=== PATIENT | female | born 1945 | race Caucasian/White ===

== ENCOUNTER → 2019-02-19 08:42 | Outpatient (CLI) | payer BC, MEDICARE, SELFPAY ==
--- NOTE | 2019-02-19 08:43 | CT_ITS ---
PROCEDURE: CT ABDOMEN PELVIS WO CON CLINICAL INDICATION: RT FLANK PAIN COMPARISON: No exams were available for comparison TECHNIQUE: Axial images obtained with sagittal and coronal reformats. All CT scans at the facility use one or more dose reduction, viz: automated exposure control, ma/kV adjustment per patient size (including targeted exams where dose is matched to indication, i.e. head), or iterative reconstruction technique. FINDINGS: LOWER THORAX: There is a partially calcified nodule in the right lung base posteriorly measuring 12 mm. Coronary artery calcifications are present. Abdomen and pelvis: The liver, gallbladder, spleen, and pancreas have an unremarkable appearance. There is a small hiatal hernia. The adrenal glands are slightly prominent but maintain and adrenal form shape. No renal or ureteral calculi. Very minimal ectasia of the right renal collecting system and ureter noted which could be due to a recently passed stone or patient's hydration status. No pelvic mass abnormal fluid collection or focal inflammatory change of the pelvis. No evidence of appendicitis or diverticulitis. There is diverticulosis of the descending and sigmoid colon. There is a mild amount of retained colonic feces. No acute bony findings IMPRESSION: 1. No acute abdominal or pelvic findings. 2. No renal or ureteral calculi. There is minimal ectasia of the right renal collecting system which could be due to recently passed stone. 3. Colonic diverticulosis. No evidence of diverticulitis Dictated by: Anastacio Lora MD 02/19/2019 15:42 Electronically signed by Anastacio Lora MD in [place] 02/19/2019 15:42
== END ==
PROVIDERS: Visit Provider Urology
DX: R10.9 Unspecified abdominal pain (principal)
CPT/HCPCS: 74176

== ENCOUNTER 2019-02-28 16:27 | Inpatient (IN) ==
--- NOTE | 2019-02-28 16:33 | Emergency Department Note ---
ED Disposition Clinical Impression: ST elevation (STEMI) myocardial infarction Qualifiers: Involved coronary artery: unspecified coronary artery Qualified Code(s): I21.3 - ST elevation (STEMI) myocardial infarction of unspecified site Disposition: Admitted As Inpatient Condition on Discharge: Serious - Critical Care Critical Care Time: Yes Attestation: On , the high probability of a clinically significant, sudden or life threatening deterioration of the following system(s) required my full and direct attention, intervention and personal management. The time I documented below is in addition to time spent performing reported procedures but includes the following listed in this critical care notation. Total Critical Care Time: 15 Vital system(s) involved:: Circulatory Failure My critical care processes included: Assessment & monitoring of V/S, Initial and Re-exams, Data Review/Interpretation, Coordinating Care, Medication Orders and management, Documentation Medical Decision Making - Donell Inquiry Pt receiving controlled substance: No Vital Signs: 02/28/19 16:28 02/28/19 16:49 Temperature 98.1 F 98.1 F Temperature Source Oral Oral Pulse Rate 85 Pulse Rate [Radial] 86 Respiratory Rate 18 18 Blood Pressure 137/57 L Blood Pressure [Right Arm] 175/114 H Blood Pressure Mean [Right Arm] 134 Blood Pressure Source [Right Arm] Automatic Cuff Blood Pressure Position [Right Arm] Sitting 02 Sat by Pulse Oximetry 97 Oxygen Delivery Method Room Air Room Air - Lab Data Lab Results 02/28/19 16:29: WBC 9.4, RBC 5.24, Hgb 15.0, Hct 43.5, MCV 83.1, MCH 28.7, MCHC 34.6, RDW 13.6, Plt Count 237, MPV 8.3, Neut % (Auto) 74.9, Lymph % (Auto) 19.0, [place] % (Auto) 4.0, Eos % (Auto) 1.4, Baso % (Auto) 0.6, Neut # (Auto) 7.1, Lymph # (Auto) 1.8, [place] # (Auto) 0.4, Eos # (Auto) 0.1, Baso # (Auto) 0.1 02/28/19 16:29: Sodium 136, Potassium 4.0, Chloride 100, Carbon Dioxide 25, Anion Gap 15.0, BUN 20 H, Creatinine 0.85, Estimated Creat Clear 58, Estimated GFR 66, Est GFR ( Amer) 79, Glucose 136 H, Calcium 9.4, Troponin I 0.60 H 02/28/19 17:26: Activated Clotting Time 221 H* Result diagrams: 02/28/19 16:29 02/28/19 16:29 Orders (Tests/Meds): ED MEDICATIONS Generic Name Dose Route Start Last Admin Trade Name Freq PRN Reason Stop Dose Admin Acetaminophen 325 mg 02/28/19 18:50 Acetaminophen 325mg Tab PO 03/30/19 17:55 Q4HP PRN Mild Pain Acetaminophen 650 mg 02/28/19 18:50 Acetaminophen 325mg Tab PO 03/30/19 17:55 Q4HP PRN Mild to Moderate Pain Aspirin 81 mg 03/01/19 09:00 Aspirin 81mg Enteric Coated Tablet PO 03/31/19 08:59 DAILY [facility] Diphenhydramine HCl 50 mg 02/28/19 16:45 02/28/19 17:09 Benadryl 50mg/1ml Vial IV 02/28/19 16:46 50 mg ONCE ONE Administration Heparin Sodium/Sodium Chloride 3,000 unit 02/28/19 16:45 02/28/19 17:10 Heparin 1000 Units/500ml Ns ([facility]) IV 02/28/19 16:46 3,000 unit ONCE ONE Administration Insulin Human Lispro 0 unit 02/28/19 21:00 Humalog 100 Units/Ml 3ml Vial (Ssi) SQ 03/30/19 20:59 [facility] Protocol Insulin Human Lispro 0 unit 02/28/19 21:00 Humalog 100 Units/Ml 3ml Vial (Ssi) SQ 03/30/19 20:59 [facility] Protocol Ioversol 75 ml 02/28/19 18:10 02/28/19 18:13 Rad-Optiray 350 150ml Vial IV 02/28/19 18:11 75 ml ONCE ONE Administration Lidocaine HCl 20 ml 02/28/19 16:45 02/28/19 17:10 Lidocaine 1% 10ml Mdv IJ 02/28/19 16:46 10 ml ONCE ONE Administration Miscellaneous 1 each 02/28/19 18:50 Consider Dual Antiplatelet Therapy For Stent * 03/30/19 17:55 NEEDED PRN Reminder for s/p stent Miscellaneous 0 each 02/28/19 18:50 Pharmacy Consult Request NOTAPPLIC 02/28/19 18:51 ONCE ONE Ondansetron HCl 4 mg 02/28/19 18:50 02/28/19 19:22 Zofran 4mg/2ml Vial IV 03/30/19 17:55 4 mg Q6HP PRN Administration Nausea Ticagrelor 90 mg 02/28/19 21:00 Brilinta 90mg Tablet PO 03/30/19 20:59 BID ALICIA Discontinued Medications Generic Name Dose Route Start Last Admin Trade Name Freq PRN Reason Stop Dose Admin Acetaminophen 325 mg 02/28/19 17:56 Acetaminophen 325mg Tab PO 03/30/19 17:55 Q4HP PRN Mild Pain Acetaminophen 650 mg 02/28/19 17:56 Acetaminophen 325mg Tab PO 03/30/19 17:55 Q4HP PRN Mild to Moderate Pain Aspirin 324 mg 02/28/19 16:29 02/28/19 16:33 Aspirin 81mg Chewable Tablet PO 02/28/19 16:30 324 mg ONCE ONE Administration Aspirin 81 mg 03/01/19 09:00 Aspirin 81mg Enteric Coated Tablet PO 03/31/19 08:59 DAILY [facility] Fentanyl Citrate 25 mcg 02/28/19 16:45 02/28/19 17:24 Fentanyl 100mcg/2ml Vial IV 03/01/19 16:46 50 mcg Q3MINP PRN Administration Moderate to Severe Pain Fentanyl Citrate 50 mcg 02/28/19 16:45 Fentanyl 100mcg/2ml Vial IV 03/01/19 16:46 Q3MINP PRN Moderate to Severe Pain Fentanyl Citrate 25 mcg 02/28/19 16:45 Fentanyl 250mcg/5ml Vial IV 03/01/19 16:45 Q3MINP PRN Moderate to Severe Pain Fentanyl Citrate 50 mcg 02/28/19 16:45 Fentanyl 250mcg/5ml Vial IV 03/01/19 16:45 Q3MINP PRN Moderate to Severe Pain Flumazenil 0.2 mg 02/28/19 16:45 Romazicon 0.1mg/Ml 5ml Vial IV 02/28/19 23:00 NEEDED PRN Sedation Heparin Sodium (Porcine) 6,000 unit 02/28/19 16:33 02/28/19 16:39 Heparin Sodium 5,000 Units/Ml Vial IV 02/28/19 16:34 6,000 unit ONCE ONE Administration Heparin Sodium (Porcine) 10,000 unit 02/28/19 16:45 02/28/19 17:28 Heparin 1,000 Units/Ml 10ml Vial ([facility] Assistant) IV 02/28/19 20:45 2,000 unit NEEDED PRN Administration Emergency Box [facility] Sodium Chloride 1,000 mls @ 25 mls/hr 02/28/19 16:45 02/28/19 17:10 Sod Chlor 0.9% 1000ml Bag IV 03/01/19 16:45 25 mls/hr .Q25H ALICIA Administration Lidocaine HCl 20 ml 02/28/19 16:45 Lidocaine 1% 5ml Pf Vial IJ 02/28/19 16:46 ONCE ONE Midazolam HCl 1 mg 02/28/19 16:45 Midazolam 2mg/2ml Vial IV 03/01/19 16:45 Q3MINP PRN Sedation Midazolam HCl 1 mg 02/28/19 16:45 02/28/19 17:23 Midazolam 1mg/Ml 5ml Vial IV 03/01/19 16:45 3 mg Q3MINP PRN Administration Sedation Miscellaneous 0 each 02/28/19 17:56 Pharmacy Consult Request NOTAPPLIC 02/28/19 17:57 ONCE ONE Miscellaneous 1 each 02/28/19 17:56 Consider Dual Antiplatelet Therapy For Stent * 03/30/19 17:55 NEEDED PRN Reminder for s/p stent Naloxone HCl 0.4 mg 02/28/19 16:45 Narcan 0.4mg/Ml Vial IV 03/01/19 16:45 Q5MINP PRN Decreased Respirations Nitroglycerin 0.4 mg 02/28/19 16:40 02/28/19 16:38 Nitrostat 0.4mg Sl Tablet SL 03/30/19 16:39 0.4 mg Q5MINP PRN Administration Chest Pain Nitroglycerin 800 mcg 02/28/19 16:45 Nitroglycerin 800mcg/8ml Syr ([facility]) IV 03/01/19 16:45 NEEDED PRN Emergency Box [facility] Ondansetron HCl 4 mg 02/28/19 17:56 Zofran 4mg/2ml Vial IV 03/30/19 17:55 Q6HP PRN Nausea Ticagrelor 180 mg 02/28/19 16:39 02/28/19 16:41 Brilinta 90mg Tablet PO 02/28/19 16:40 180 mg ONCE ONE Administration Ticagrelor 90 mg 02/28/19 21:00 Brilinta 90mg Tablet PO 03/30/19 20:59 BID ALICIA Verapamil HCl 2.5 mg 02/28/19 16:45 Verapamil 2.5mg/Ml 2ml Vial IV 02/28/19 16:46 ONCE ONE ORDERS Category Date Time Status ECG Request by /Amna Stat Y 02/28/19 16:29 Stop Req - ECG Data Tracing #1 EKG interpreted by Juanjo Reyes MD: Rhythm: sinus Rate: 75 [place]: normal Ectopy: none Conduction: normal ST Segment Changes: Inferior ST elevation, STEMI. Lateral depression, reciprocal change. Q Waves: none - Physician Consults Physician Consulted: Austin Time: 16:27 Reason -: Cardiology Eval/Care Comment/Response: Requests heparin 6000 units IV, Brilinta 180 mg p.o. He is on his way in. [facility] team called in. Additional Consult: Vineet Time: 16:45 Reason -: Admission Comment/Response: Agrees to admit the patient to the hospital. We discussed the patient's clinical information, including history, exam, laboratory and radiology results and ED course. Per hospital procedure, I will write temporary bridge inpatient orders on the patient. Specific orders requested by the admitting physician: Per cardiology - MEERA Score for Stemi Age of Patient: 70-79 years old Heart Rate: 70-89 bpm Systolic Blood Pressure: 140-159 mmHg Serum Creatinine: 0.80-1.19 mg/dl CHF [place] Class: I-No CHF Other Risk Factors: ST Segment Deviation Stemi Risk Score: 143 General Adult HPI - General Chief complaint: Chest Pain Stated complaint: Chest pressure Time Seen by Provider: 02/28/19 16:27 - History of Present Illness HPI narrative: Patient states began having intermittent chest pain yesterday. Initially was lasting just a few minutes, but she says today it has been present pretty much all day. Describes a pressure in the center of her chest without shortness of breath, nausea, diaphoresis, or radiation. She does not have any known heart disease but does have diabetes and hyperlipidemia. She does not have hypertension. She is a non-smoker. - Related Data Home Medications Medication Instructions Recorded Confirmed atorvastatin 40 mg tablet 40 mg PO DAILY tab 02/17/19 02/19/19 sitagliptin 50 mg-metformin ER 1 tab PO DAILY 02/17/19 02/19/19 1,000 mg tablet,extended release 24h mp Allergies Allergy/AdvReac Type Severity Reaction Status Date / Time No Known Allergies Allergy Verified 02/19/19 15:36 [facility] History - Hepatitis A Screen Attestation statement:: This patient has been screened for Hepatitis A risk factors. I have reviewed the patient's past medical history: Yes Medical History: Reports:: Diabetes Mellitus Type 1 Comment: 3 C-sections, rotator cuff surgery 1997, cataract 06/29 - Social History Smoking Status: Never smoker Alcohol Intake: never Substance Use Type: denies use Occupational Status: employed ROS Obtained: Yes All systems reviewed & no additional complaints - Constitutional Constitutional: Denies fever(s) - Cardiovascular Cardiovascular: Reports chest pain, Denies diaphoresis - Respiratory Respiratory: No cough, No dyspnea - Gastrointestinal Gastrointestingal: Denies: abdominal pain, vomiting Physical Exam - General General appearance: alert, in no apparent distress - Head Head exam: atraumatic, normocephalic - Eye Eye exam: Present: normal appearance, EOMI - ENT ENT exam: Present: mucous membranes moist - Neck Neck exam: Present: normal inspection, trachea midline - Chest Chest inspection: Present: normal inspection, symmetric chest wall rise - Respiratory Respiratory exam: Present: normal lung sounds bilaterally. Absent: respiratory distress - Cardiovascular Cardiovascular exam: Present: regular rate, normal rhythm, normal heart sounds - Abdominal Exam Abdominal exam: Present: soft, normal bowel sounds. Absent: distention, tenderness - Extremities Exam Extremities exam: Present: normal inspection, full ROM. Absent: tenderness - Neurological Exam Neurological exam: Present: alert, oriented X3 - Psychiatric Psychiatric exam: Present: normal affect, normal mood - Skin Skin exam: Present: warm, dry. Absent: cyanosis, diaphoresis
[2019-02-28 16:39] LABS: Basophils # 0.1 K/mm3 (0-0.2); Basophils % 0.6 % (0.1-2.0); Eosinophils # 0.1 K/mm3 (0.0-0.4); Eosinophils % 1.4 % (0.1-12.0); Hematocrit 43.5 % (37.0-47.0); Lymphocytes # 1.8 K/mm3 (0.7-4.5); Mean Corpuscular HGB Conc 34.6 g/dL (31.8-35.4); Mean Corpuscular Volume 83.1 fl (81-99); Mean Platelet Volume 8.3 fl (7.4-10.4); Monocytes # 0.4 K/mm3 (0.1-1.0); Neutrophils # 7.1 K/mm3 (1.8-7.8); Neutrophils % 74.9 % (37.0-80.0); Platelet Count 237 K/mm3 (142-424); Red Blood Count 5.24 M/mm3 (4.20-5.40); Red Cell Distribution Width 13.6 % (11.5-17.5); White Blood Count 9.4 K/mm3 (4.8-10.8)
[2019-02-28 17:17] LABS: Calcium 9.4 mg/dL (8.5-10.1)
--- NOTE | 2019-02-28 19:15 | History & Physical Report ---
*Admission Date: 02/28/19 *Chief complaint: Chest pain *History of present illness: Ms. Moser is a 74-year-old white female with a history of type 2 diabetes mellitus and hyperlipidemia who presented to the emergency room today with 2-day history of intermittent chest pressure and tightness that was more persistent today and her family encouraged her to come to the emergency room. She has no history of heart disease. She does not smoke. No significant family history of heart disease. She is active and walks regularly. Her PCP is Dr. Perez in [place]. Work-up in the emergency room showed an elevated troponin with evidence of inferior AL on EKG. She was taken directly to the [facility] by Dr. Avila with findings of a 99% RCA lesion requiring a single stent. She had an additional 70% lesion. At the time of my exam she is resting comfortably in bed. She has no complaints of chest pain, pressure, or tightness. [facility] History Medical History: Reports:: Diabetes Mellitus Type 2, Hyperlipidemia Denies:: Atherosclerotic Heart Disease, Chronic Obstructive Pulmonary Disease (COPD), Diabetes Mellitus Type 1, Palpitations *Have you ever received a pneumonia vaccine?: No *Have you received a flu vaccine this season?: Yes Laterality Cases: Bilateral: Cataract - *Social History Educational Level: Completed High School Smoking Status: Never smoker Alcohol Intake: never Substance Use Type: denies use *Occupational Status:: employed Housing: house *Travel in the last 8 weeks: None Family Hx:: No significant family history Review of Systems - Constitutional Denies fatigue, Denies fever(s), Denies headache(s), Denies weight loss - Eyes Denies blurry vision, Denies double vision - ENT Denies dizziness, Denies hearing loss - *Cardiovascular Reports chest pain, Reports chest pain with activity, Denies shortness of breath, Denies irregular heart rhythm, Denies leg swelling - *Respiratory Denies chest congestion, Denies cough - *Gastrointestinal Denies abdominal pain, Denies change in bowel habits, Denies nausea, Denies vomiting - *Genitourinary Denies abnormal periods, Denies difficulty urinating - *Musculoskeletal Reports back pain (right flank area), Denies joint pain, Denies joint swelling - Integumentary/Breasts Denies change in skin color, Denies wounds - *Neurologic Denies confusion, Denies dizziness - Psychiatric Denies behavioral changes, Denies memory loss - Endocrine Denies excessive sweating, Denies increased thirst, Denies increased urination - Hematologic/Lymphatic Denies easy bruising - Allergic/Immunologic Denies itchy eyes Meds Home Medications Medication Instructions Recorded Confirmed Type atorvastatin 40 mg tablet 40 mg PO DAILY tab 02/17/19 02/28/19 History sitagliptin 50 mg-metformin ER 1 tab PO DAILY 02/17/19 02/28/19 History 1,000 mg tablet,extended release 24h mp Allergies Allergy/AdvReac Type Severity Reaction Status Date / Time No Known Allergies Allergy Verified 02/19/19 15:36 Exam Vital signs and Labs for Last 24 Hours: Temp Pulse Resp BP Pulse Ox 98.3 F 76 18 121/85 94 L 02/28/19 18:42 02/28/19 18:42 02/28/19 18:42 02/28/19 18:42 02/28/19 18:42 Laboratory Results - last 24 hr 02/28/19 16:29: WBC 9.4, RBC 5.24, Hgb 15.0, Hct 43.5, MCV 83.1, MCH 28.7, MCHC 34.6, RDW 13.6, Plt Count 237, MPV 8.3, Neut % (Auto) 74.9, Lymph % (Auto) 19.0, [place] % (Auto) 4.0, Eos % (Auto) 1.4, Baso % (Auto) 0.6, Neut # (Auto) 7.1, Lymph # (Auto) 1.8, [place] # (Auto) 0.4, Eos # (Auto) 0.1, Baso # (Auto) 0.1 02/28/19 16:29: Sodium 136, Potassium 4.0, Chloride 100, Carbon Dioxide 25, Anion Gap 15.0, BUN 20 H, Creatinine 0.85, Estimated Creat Clear 58, Estimated GFR 66, Est GFR ( Amer) 79, Glucose 136 H, Calcium 9.4, Troponin I 0.60 H 02/28/19 17:26: Activated Clotting Time 221 H* I & O for Last 24 hours: Intake & Output 02/26/19 02/27/19 02/28/19 03/01/19 11:59 11:59 11:59 11:59 Weight 164 lb 5 oz Narrative: She is lying flat in bed following her heart cath through the right groin. She is alert and oriented. Color is normal. HEENT shows a cream to be atraumatic and normocephalic. Sclera conjunctive are clear. Nares patent. Oropharynx with slightly dry mucous membranes. Neck is supple with no adenopathy, thyromegaly, or bruits. Lungs are clear to auscultation. Heart is regular with no murmurs or ectopy. No chest wall tenderness. Abdomen is soft and nondistended with no unusual masses or tenderness. Bowel sounds are present but diminished. Lower extremities show no edema. Assessment and Plan (1) ST elevation (STEMI) myocardial infarction Current visit: Yes Status: Acute Qualifiers: Involved coronary artery: unspecified coronary artery Qualified Code(s): I21.3 - ST elevation (STEMI) myocardial infarction of unspecified site Category: Medical Code(s): I21.3 - ST elevation (STEMI) myocardial infarction of unspecified site (2) Stented coronary artery Current visit: Yes Status: Acute Category: Surgical Code(s): Z95.5 - Presence of coronary angioplasty implant and graft (3) ASCVD (arteriosclerotic cardiovascular disease) Current visit: Yes Status: Acute Category: Medical Code(s): I25.10 - Atherosclerotic heart disease of [place] coronary artery without angina pectoris (4) Type 2 diabetes mellitus Current visit: Yes Status: Acute Category: Medical Code(s): E11.9 - Type 2 diabetes mellitus without complications (5) Hyperlipidemia Current visit: Yes Status: Acute Category: Medical Code(s): E78.5 - Hyperlipidemia, unspecified - Assessment and plan all Dx Assessment and Plan for all problems:: She is post heart cath with a single RCA stent. Post cath standing orders in place. We will start her on a sliding scale insulin until she can resume her home medications.
--- NOTE | 2019-03-01 08:54 | Progress Note ---
Internal Medicine - PN: Subj *Date: 03/01/19 *Time: 09:05 Interval history: She rested fairly well through the night. No complaints of chest pain or pressure this morning. No shortness of breath. She ate a good breakfast. She has been up to the bathroom. Blood sugar was 117 this morning. Exam Vital signs and Labs for Last 24 Hours: Temp Pulse Resp BP Pulse Ox 98.6 F 81 19 118/57 L 99 03/01/19 07:52 03/01/19 08:00 03/01/19 08:00 03/01/19 08:00 03/01/19 08:00 Laboratory Results - last 24 hr 02/28/19 16:29: WBC 9.4, RBC 5.24, Hgb 15.0, Hct 43.5, MCV 83.1, MCH 28.7, MCHC 34.6, RDW 13.6, Plt Count 237, MPV 8.3, Neut % (Auto) 74.9, Lymph % (Auto) 19.0, [place] % (Auto) 4.0, Eos % (Auto) 1.4, Baso % (Auto) 0.6, Neut # (Auto) 7.1, Lymph # (Auto) 1.8, [place] # (Auto) 0.4, Eos # (Auto) 0.1, Baso # (Auto) 0.1 02/28/19 16:29: Sodium 136, Potassium 4.0, Chloride 100, Carbon Dioxide 25, Anion Gap 15.0, BUN 20 H, Creatinine 0.85, Estimated Creat Clear 58, Estimated GFR 66, Est GFR ( Amer) 79, Glucose 136 H, Calcium 9.4, Troponin I 0.60 H 02/28/19 17:26: Activated Clotting Time 221 H* 02/28/19 20:45: POC Glucose 159 H 03/01/19 05:30: POC Glucose 126 H I & O for Last 24 hours: Intake & Output 02/26/19 02/27/19 02/28/19 03/01/19 11:59 11:59 11:59 11:59 Weight 162 lb 14.746 oz Narrative: She is sitting on the side of the bed and appears in no distress. Color is normal. Lungs are clear to auscultation. Heart is regular with no ectopy or murmurs. Extremities show no edema. Assessment and Plan (1) ST elevation (STEMI) myocardial infarction Current visit: Yes Status: Acute Qualifiers: Involved coronary artery: unspecified coronary artery Qualified Code(s): I21.3 - ST elevation (STEMI) myocardial infarction of unspecified site Category: Medical Code(s): I21.3 - ST elevation (STEMI) myocardial infarction of unspecified site (2) Stented coronary artery Current visit: Yes Status: Acute Category: Surgical Code(s): Z95.5 - Presence of coronary angioplasty implant and graft (3) ASCVD (arteriosclerotic cardiovascular disease) Current visit: Yes Status: Acute Category: Medical Code(s): I25.10 - Atherosclerotic heart disease of [place] coronary artery without angina pectoris (4) Type 2 diabetes mellitus Current visit: Yes Status: Acute Category: Medical Code(s): E11.9 - Type 2 diabetes mellitus without complications (5) Hyperlipidemia Current visit: Yes Status: Acute Category: Medical Code(s): E78.5 - Hyperlipidemia, unspecified - Assessment and plan all Dx Assessment and Plan for all problems:: Doing well post DRYERMAN/WOMAN. Will resume her Januvia and atorvastatin today. She will also be started on a beta-rpincess and GENESIS inhibitor. Activity as tolerated. Further recommendations per cardiology.
--- NOTE | 2019-03-01 11:58 | Pharmacy Consult Notes ---
[facility] Pharmacy VTE Monitoring - Patient Demographics Admission date: 02/28/19 Report Date: 03/01/19 Time: 11:57 Allergies/Adverse Reactions: Patient Allergies No Known Allergies Allergy (Verified 02/19/19 15:36) Height: 1.7 m Weight: 73.9 kg Patient Problems: Current Active Problems ST elevation (STEMI) myocardial infarction (Acute) Stented coronary artery (Acute) Type 2 diabetes mellitus (Acute) Hyperlipidemia (Acute) ASCVD (arteriosclerotic cardiovascular disease) (Acute) - VTE Risk Labs: VTE Related Lab Results Hgb 15.0 g/dL (12.2-16.2) 02/28/19 16:29 Hct 43.5 % (37.0-47.0) 02/28/19 16:29 Plt Count 237 K/mm3 (142-424) 02/28/19 16:29 BUN 20 mg/dL (7-18) H 02/28/19 16:29 Creatinine 0.85 mg/dL (0.55-1.02) 02/28/19 16:29 Estimated Creat Clear 58 mL/min (50-200) 02/28/19 16:29 VTE Score: 3 VTE Risk Level: Low Risk - Prophylaxis VTE Prophylaxis Ordered?: Yes Types of VTE Prophylaxis: TEDS Knee High Location of Applied Device: Bilateral Lower Extremeties
[2019-03-02 06:19] LABS: Basophils % 0.5 % (0.1-2.0); Eosinophils # 0.1 K/mm3 (0.0-0.4); Eosinophils % 1.7 % (0.1-12.0); Hematocrit 41.2 % (37.0-47.0); Hemoglobin 13.5 g/dL (12.2-16.2); Lymphocytes % 25.2 % (10-50); Mean Corpuscular HGB Conc 32.7 g/dL (31.8-35.4); Mean Corpuscular Volume 85.1 fl (81-99); Mean Platelet Volume 8.6 fl (7.4-10.4); Monocytes # 0.7 K/mm3 (0.1-1.0); Monocytes % 8.4 % (1.7-9.3); Neutrophils % 64.2 % (37.0-80.0); Platelet Count 203 K/mm3 (142-424); Red Blood Count 4.84 M/mm3 (4.20-5.40); Red Cell Distribution Width 13.9 % (11.5-17.5); White Blood Count 7.8 K/mm3 (4.8-10.8)
[2019-03-02 06:23] LABS: Anion Gap 10.4 mEq/L (5-15); Calcium 8.9 mg/dL (8.5-10.1)
--- NOTE | 2019-03-02 07:48 | Consult Report ---
History of Present Illness Consult date: 03/02/19 Requesting physician: Lalit Manley Consult reason: chest pain Chief complaint: STEMI Additional Medical History:: 1. Diabetes mellitus, type II, treated for about 3 years 2. Hyperlipidemia, on statin therapy History of present illness: Ms. Moser is a 74-year-old white female with a history of type 2 diabetes mellitus and hyperlipidemia who presented to the emergency room today with 2-day history of intermittent chest pressure and tightness that was more persistent today and her family encouraged her to come to the emergency room. She has no history of heart disease. She does not smoke. No significant family history of heart disease. She is active and walks regularly. Her PCP is Dr. Perez in [place]. Work-up in the emergency room showed an elevated troponin with evidence of inferior CT on EKG. She was taken directly to the [facility] by Dr. Avila with findings of a 99% RCA lesion requiring a single stent. She had an additional 7 0% lesion. At the time of my exam she is resting comfortably in bed. She has no complaints of chest pain, pressure, or tightness. The above per Dr. Manley Patient denies any further chest pain, pressure, indigestion symptoms since coronary stenting. States she feels fine and is ready to go home. Telemetry shows no arrhythmias. Patient states she eats healthy and is very active and this was somewhat of a surprise to her. She denies tobacco or alcohol use. No known family history of coronary artery disease. She does relate her hemoglobin A1c is in the 8 range. EKG on admission shows evidence of inferior ST elevation CT. [facility] History Medical History: Reports:: Diabetes Mellitus Type 2, Hyperlipidemia Denies:: Atherosclerotic Heart Disease, Cancer, Chronic Obstructive Pulmonary Disease (COPD), Diabetes Mellitus Type 1, Palpitations *Have you ever received a pneumonia vaccine?: No *Have you received a flu vaccine this season?: Yes Other Medical History: Reports: Cataracts (left) Laterality Cases: Bilateral: Cataract Other Surgeries: Yes: Colonoscopy, (x3), EGD, Tubal Ligation Fractures: Yes (l foot) - *Social History Educational Level: Completed High School Smoking Status: Never smoker Alcohol Intake: never Substance Use Type: denies use *Occupational Status:: employed Housing: house *Travel in the last 8 weeks: None Family Hx:: No significant family history Meds Home Medications Medication Instructions Recorded Confirmed Type atorvastatin 40 mg tablet 40 mg PO DAILY tab 02/17/19 02/28/19 History sitagliptin 50 mg-metformin ER 1 tab PO DAILY 02/17/19 02/28/19 History 1,000 mg tablet,extended release 24h mp Allergies Allergy/AdvReac Type Severity Reaction Status Date / Time No Known Allergies Allergy Verified 02/19/19 15:36 Review of Systems - *Cardiovascular Reports chest pain, Denies shortness of breath - *Respiratory Denies shortness of breath - *Gastrointestinal Denies abdominal pain, Denies nausea, Denies vomiting - *Genitourinary Denies blood in urine - *Musculoskeletal Denies joint pain, Denies back pain - *Neurologic Denies behavioral changes, Denies confusion, Denies dizziness, Denies headache(s), Denies memory loss Exam Vital signs and Labs for Last 24 Hours: Temp Pulse Resp BP Pulse Ox 97.9 F 77 16 120/62 92 L 03/02/19 04:00 03/02/19 04:00 03/02/19 04:00 03/02/19 04:00 03/02/19 04:00 Laboratory Results - last 24 hr 03/01/19 11:10: POC Glucose 164 H 03/01/19 15:47: POC Glucose 166 H 03/01/19 21:42: POC Glucose 121 H 03/02/19 05:18: WBC 7.8, RBC 4.84, Hgb 13.5, Hct 41.2, MCV 85.1, MCH 27.9, MCHC 32.7, RDW 13.9, Plt Count 203, MPV 8.6, Neut % (Auto) 64.2, Lymph % (Auto) 25.2, [place] % (Auto) 8.4, Eos % (Auto) 1.7, Baso % (Auto) 0.5, Neut # (Auto) 5.0, Lymph # (Auto) 2.0, [place] # (Auto) 0.7, Eos # (Auto) 0.1, Baso # (Auto) 0.0 03/02/19 05:18: Sodium 142, Potassium 4.4, Chloride 107, Carbon Dioxide 29, Anion Gap 10.4, BUN 16, Creatinine 1.06 H D, Estimated Creat Clear 55, Estimated GFR 51 L, Est GFR ( Amer) 61 D, Glucose 133 H, Calcium 8.9 03/02/19 05:42: POC Glucose 129 H I & O for Last 24 hours: Intake & Output 02/27/19 02/28/19 03/01/19 03/02/19 11:59 11:59 11:59 11:59 Intake Total 240 / 240 Balance 240 / 240 Weight 162 lb 14.746 oz 162 lb - *Routine HEENT Exam Head: Present: normocephalic Eye: Present: EOMI, PERRL ENT: Present: mucous membranes moist - *Routine Neck Exam Present: supple. Absent: JVD, carotid bruit - *Routine Respiratory Exam Present: CTA bilaterally. Absent: accessory muscle use, rales, rhonchi, wheezes - *Routine Cardiovascular Exam Present: RRR. Absent: murmur, gallop, rubs - *Routine Abdominal Exam Present: soft. Absent: tenderness, distended, guarding - *Routine Extremities Exam Absent: edema, calf tenderness - *Routine Neurological Exam Present: alert, oriented X3, moving all extremities Assessment and Plan (1) ST elevation (STEMI) myocardial infarction Current visit: Yes Status: Acute Qualifiers: Involved coronary artery: unspecified coronary artery Qualified Code(s): I21.3 - ST elevation (STEMI) myocardial infarction of unspecified site Category: Medical Code(s): I21.3 - ST elevation (STEMI) myocardial infarction of unspecified site (2) Stented coronary artery Current visit: Yes Status: Acute Category: Surgical Code(s): Z95.5 - Presence of coronary angioplasty implant and graft (3) ASCVD (arteriosclerotic cardiovascular disease) Current visit: Yes Status: Acute Category: Medical Code(s): I25.10 - Atherosclerotic heart disease of [place] coronary artery without angina pectoris (4) Type 2 diabetes mellitus Current visit: Yes Status: Acute Category: Medical Code(s): E11.9 - Type 2 diabetes mellitus without complications (5) Hyperlipidemia Current visit: Yes Status: Acute Category: Medical Code(s): E78.5 - Hyperlipidemia, unspecified - Assessment and plan all Dx Assessment and Plan for all problems:: 1. Status post drug-eluting stent placement to the right coronary artery, on dual antiplatelet therapy with aspirin 81 mg daily and Brilinta 90 mg twice daily. 2. Hyperlipidemia, increase atorvastatin to 80 mg daily 3. Patient has additional coronary disease in the LAD which will need attention in the near future. Patient is on lisinopril 5 mg daily and metoprolol 12.5 mg twice daily. 4. Diabetes mellitus, type II continue therapy per Dr. Manley 5. Will obtain an echocardiogram today and patient could be discharged home for early outpatient follow-up next week. 6. Dietary consult to advise on diabetic diet.
--- NOTE | 2019-03-02 08:18 | Progress Note ---
<Yumiko Irene - Last Filed: 03/02/19 08:16> Internal Medicine - PN: Subj *Date: 03/02/19 *Time: 08:16 Interval history: Patient had echo done. She denies chest pain and shortness of breath. She is eating without difficulty. She has ambulated in the room without problems. She did sleep some last night. Exam Vital signs and Labs for Last 24 Hours: Temp Pulse Resp BP Pulse Ox 97.9 F 77 16 120/62 92 L 03/02/19 04:00 03/02/19 04:00 03/02/19 04:00 03/02/19 04:00 03/02/19 04:00 Laboratory Results - last 24 hr 03/01/19 11:10: POC Glucose 164 H 03/01/19 15:47: POC Glucose 166 H 03/01/19 21:42: POC Glucose 121 H 03/02/19 05:18: WBC 7.8, RBC 4.84, Hgb 13.5, Hct 41.2, MCV 85.1, MCH 27.9, MCHC 32.7, RDW 13.9, Plt Count 203, MPV 8.6, Neut % (Auto) 64.2, Lymph % (Auto) 25.2, [place] % (Auto) 8.4, Eos % (Auto) 1.7, Baso % (Auto) 0.5, Neut # (Auto) 5.0, Lymph # (Auto) 2.0, [place] # (Auto) 0.7, Eos # (Auto) 0.1, Baso # (Auto) 0.0 03/02/19 05:18: Sodium 142, Potassium 4.4, Chloride 107, Carbon Dioxide 29, Anion Gap 10.4, BUN 16, Creatinine 1.06 H D, Estimated Creat Clear 55, Estimated GFR 51 L, Est GFR ( Amer) 61 D, Glucose 133 H, Calcium 8.9 03/02/19 05:42: POC Glucose 129 H I & O for Last 24 hours: Intake & Output 02/27/19 02/28/19 03/01/19 03/02/19 11:59 11:59 11:59 11:59 Intake Total 480 / 480 Balance 480 / 480 Weight 162 lb 14.746 oz 162 lb - Constitutional no acute distress - *Routine Respiratory Exam Present: CTA bilaterally (Anteriorly and posteriorly) - *Routine Cardiovascular Exam Present: RRR Comments: Sinus rhythm on monitor - *Routine Abdominal Exam Present: soft, normoactive bowel sounds. Absent: tenderness, distended - *Routine Extremities Exam Absent: edema, calf tenderness - *Routine Neurological Exam Present: alert, oriented X3 Assessment and Plan (1) ST elevation (STEMI) myocardial infarction Status: Acute Qualifiers: Involved coronary artery: unspecified coronary artery Qualified Code(s): I21.3 - ST elevation (STEMI) myocardial infarction of unspecified site Category: Medical Code(s): I21.3 - ST elevation (STEMI) myocardial infarction of unspecified site (2) Stented coronary artery Status: Acute Category: Surgical Code(s): Z95.5 - Presence of coronary angioplasty implant and graft (3) ASCVD (arteriosclerotic cardiovascular disease) Status: Acute Category: Medical Code(s): I25.10 - Atherosclerotic heart disease of [place] coronary artery without angina pectoris (4) Type 2 diabetes mellitus Status: Acute Category: Medical Code(s): E11.9 - Type 2 diabetes mellitus without complications (5) Hyperlipidemia Status: Acute Category: Medical Code(s): E78.5 - Hyperlipidemia, unspecified - Assessment and plan all Dx Assessment and Plan for all problems:: Discharge today with meds as per cardiology. <Lalit Manley - Last Filed: 03/02/19 17:13> Internal Medicine - PN: Subj *Date: 03/02/19 *Time: 17:12 Exam Vital signs and Labs for Last 24 Hours: Temp Pulse Resp BP Pulse Ox 99.0 F 83 19 121/73 96 03/02/19 08:00 03/02/19 08:00 03/02/19 08:00 03/02/19 08:00 03/02/19 08:00 Laboratory Results - last 24 hr 03/01/19 21:42: POC Glucose 121 H 03/02/19 05:18: WBC 7.8, RBC 4.84, Hgb 13.5, Hct 41.2, MCV 85.1, MCH 27.9, MCHC 32.7, RDW 13.9, Plt Count 203, MPV 8.6, Neut % (Auto) 64.2, Lymph % (Auto) 25.2, [place] % (Auto) 8.4, Eos % (Auto) 1.7, Baso % (Auto) 0.5, Neut # (Auto) 5.0, Lymph # (Auto) 2.0, [place] # (Auto) 0.7, Eos # (Auto) 0.1, Baso # (Auto) 0.0 03/02/19 05:18: Sodium 142, Potassium 4.4, Chloride 107, Carbon Dioxide 29, Anion Gap 10.4, BUN 16, Creatinine 1.06 H D, Estimated Creat Clear 55, Estimated GFR 51 L, Est GFR ( Amer) 61 D, Glucose 133 H, Calcium 8.9 03/02/19 05:42: POC Glucose 129 H I & O for Last 24 hours: Intake & Output 02/28/19 03/01/19 03/02/19 03/03/19 11:59 11:59 11:59 11:59 Intake Total 480 / 480 Balance 480 / 480 Weight 162 lb 14.746 oz 160 lb 14.999 oz Assessment and Plan (1) ST elevation (STEMI) myocardial infarction Status: Acute Qualifiers: Involved coronary artery: unspecified coronary artery Qualified Code(s): I21.3 - ST elevation (STEMI) myocardial infarction of unspecified site Category: Medical Code(s): I21.3 - ST elevation (STEMI) myocardial infarction of unspecified site (2) Stented coronary artery Status: Acute Category: Surgical Code(s): Z95.5 - Presence of coronary angioplasty implant and graft (3) ASCVD (arteriosclerotic cardiovascular disease) Status: Acute Category: Medical Code(s): I25.10 - Atherosclerotic heart disease of [place] coronary artery without angina pectoris (4) Type 2 diabetes mellitus Status: Acute Category: Medical Code(s): E11.9 - Type 2 diabetes mellitus without complications (5) Hyperlipidemia Status: Acute Category: Medical Code(s): E78.5 - Hyperlipidemia, unspecified - Assessment and plan all Dx Assessment and Plan for all problems:: Patient seen and examined. Cardiology consult noted. Stable for discharge.
--- NOTE | 2019-03-02 12:57 | Electrocardiograph Report ---
APPROVED REPORT Exam: Resting ECG HR:75 bpm ECG Measurements Heart Rate 75 AXES PA 104 P 31 QRSd 78 QRS 72 QT 368 T87 QTc 410 <Conclusion> Sinus rhythm with short PA ST elevation, consider inferior injury or acute infarct ACUTE [place] Abnormal ECG Electronically signed by : Markell Harrington, 03/02/2019 12:56:28
--- NOTE | 2019-03-02 18:54 | Cardiology Report ---
APPROVED REPORT EXAM: Comprehensive 2D, Doppler, and color-flow Echocardiogram Crime Prevention Police Officer: Greta Uriostegui RVT Ht: 5 ft 7 in Wt: 162lbs BSA: 1.85 BP: 118/57 mmHg Indications: Chest Pain, Diabetes,STEMI,Stent.ascvd 2D Dimensions LVOT 1.80 cm (M/F) 1.5-2.5 M-Mode Dimensions RVDd 2.36 cm (0.9-2.6)LVDd 3.50 cm (3.5-5.7) LVDs 2.21 cm (3.5-5.7)IVSd 1.32 cm (0.6-1.1) PWd 0.89 cm (0.6-1.1)EF (Teich) 67.80% FS 36.90% EDV (Teich) 50.90 mL ESV (Teich) 16.40 mL LV Diastology E/A Ratio 0.81 Mitral Valve MV A Velocity 58.00 (40-130 cm/s) Left Ventricle Left atrium is mildly enlarged, left ventricle is normal size, mild concentric left ventricular hypertrophy, visually estimated ejection fraction 50%, there is moderate inferior basal wall hypokinesis. Grade 1 diastolic dysfunction seen without tissue Doppler evidence of raise left atrial pressure. Right Ventricle Right atrium and right ventricular normal size and contractility. Aortic Valve Aortic valve is minimally thickened and fibrosed. There is no aortic stenosis or aortic insufficiency. Mitral Valve Mitral valve is grossly normal, there is no mitral stenosis, there is mild mitral regurgitation. Tricuspid Valve Tricuspid valve is grossly normal, there is mild tricuspid regurgitation. Pulmonic Valve Pulmonic valve is poorly visualized. Great Vessels Aortic root is normal size. Conclusion 1. Left atrium is mildly enlarged, left ventricle is normal size, mild concentric left ventricular hypertrophy visually estimated ejection fraction 50% with segmental wall motion abnormality described above, grade 1 diastolic dysfunction seen without tissue Doppler evidence of raise left atrial pressure. 2. Mild mitral and tricuspid regurgitation. 3. No significant pericardial effusion noted. Electronically signed by : Mitchlel Trejo, 03/02/2019 18:53:34
--- NOTE | 2019-03-03 13:34 | Discharge Summary ---
General - General Admission date:: 02/28/19 <Lalit Manley - 03/15/19 08:28> 02/28/19 <Savanna Peralta - 03/03/19 13:35> Discharge date: 03/02/19 <Savanna Peralta - 03/03/19 13:35> HPI HPI: Ms. Moser is a 74-year-old white female with a history of type 2 diabetes mellitus and hyperlipidemia who presented to the emergency room with a 2-day history of intermittent chest pressure and tightness that was more persistent and her family encouraged her to come to the emergency room. She has no history of heart disease. She does not smoke. No significant family history of heart disease. She is active and walks regularly. Her PCP is Dr. Perez in [place]. Work-up in the emergency room showed an elevated troponin with evidence of inferior AL on EKG. She was taken directly to the [facility] by Dr. Avila with findings of a 99% RCA lesion requiring a single stent. She had an additional 70% lesion. <Savanna Peralta - 03/03/19 13:35> Hospital Course Hospital Course: The patient's initial chest x-ray showed nothing acute. She had no further chest pain or pressure after her her stent placement. She was started on sliding scale insulin. She did well after the procedure and was able to get up and out of bed. She was eating well. She was started back on her Januvia and atorvastatin as well as a beta-princess and GENESIS inhibitor. She was started on aspirin as well as Brilinta. Cardiology felt she had coronary disease in the LAD which would need attention in the near future. They ordered an echocardiogram which showed an EF of 50% with grade 1 diastolic dysfunction. They felt the patient could be discharged home and will need to follow-up with them in 1 week. Patient was stable for discharge. <Savanna Peralta - 03/03/19 13:35> Objective Vital signs: Temp Pulse Resp BP Pulse Ox 99.0 F 83 19 121/73 96 03/02/19 08:00 03/02/19 08:00 03/02/19 08:00 03/02/19 08:00 03/02/19 08:00 <Lalit Manley - 03/15/19 08:28> Temp Pulse Resp BP Pulse Ox 99.0 F 83 19 121/73 96 03/02/19 08:00 03/02/19 08:00 03/02/19 08:00 03/02/19 08:00 03/02/19 08:00 <Savanna Peralta - 03/03/19 13:35> Narrative: - Constitutional no acute distress - *Routine Respiratory Exam Present: CTA bilaterally (Anteriorly and posteriorly) - *Routine Cardiovascular Exam Present: RRR Comments: Sinus rhythm on monitor - *Routine Abdominal Exam Present: soft, normoactive bowel sounds. Absent: tenderness, distended - *Routine Extremities Exam Absent: edema, calf tenderness - *Routine Neurological Exam Present: alert, oriented X3 <Savanna Peralta 03/03/19 13:35> DS: Diagnosis - Discharge Diagnosis (1) ST elevation (STEMI) myocardial infarction Status: Acute (2) Stented coronary artery Status: Acute (3) ASCVD (arteriosclerotic cardiovascular disease) Status: Acute (4) Type 2 diabetes mellitus Status: Acute (5) Hyperlipidemia Status: Acute <Savanna Peralta 03/03/19 13:31> (1) ST elevation (STEMI) myocardial infarction Status: Acute (2) Stented coronary artery Status: Acute (3) ASCVD (arteriosclerotic cardiovascular disease) Status: Acute (4) Type 2 diabetes mellitus Status: Acute (5) Hyperlipidemia Status: Chronic <Lalit Manley - 03/15/19 08:28> Discharge Plan - Patient Discharge Instructions ACTIVITY: Limited activity <Savanna Peralta - 03/03/19 13:35> DIET: diabetic diet, low fat, low cholesterol <Savanna Peralta 03/03/19 13:35> Patient Instructions: Heart Attack, Cardiac Catheterization, DI for Cardiac Catheterization, DI for Surgical Site Infection <Lalit Manley - 03/15/19 08:28> Forms: <Lalit Manley - 03/15/19 08:28> - Follow up Plan Follow up with: Ceasar Whitehead PA [Physician Heel Brusher] - 03/09/19 9:10 am ProviderAnnalee MD [Primary Care Provider] - <Lalit Manley - 03/15/19 08:28> Disposition: Home, Self-Care <Lalit Manley 03/15/19 08:28> Home Medications: Home Medications Medication Instructions Recorded Confirmed Type sitagliptin 50 mg-metformin ER 1 tab PO DAILY 02/17/19 02/28/19 History 1,000 mg tablet,extended release 24h mp Aspirin [Aspirin 81mg EC Tab] 81 mg PO DAILY #30 tablet. 03/02/19 Rx Atorvastatin Calcium [Atorvastatin 80 mg PO HS #30 tab 03/02/19 Rx 80mg Tab] Metoprolol Tartrate [Lopressor 12.5 mg PO BID #60 tab 03/02/19 Rx 25mg tablet] ticagrelor 90 mg tablet 90 mg PO BID #60 tab 03/04/19 Rx lisinopril 10 mg tablet 10 mg PO DAILY #30 tab 03/09/19 03/09/19 Rx <Lalit Manley - 03/15/19 08:28> Prescriptions/Medication Reconciliation: New Aspirin [Aspirin 81mg EC Tab] 81 mg PO DAILY #30 tablet. Atorvastatin Calcium [Atorvastatin 80mg Tab] 80 mg PO HS #30 tab Metoprolol Tartrate [Lopressor 25mg tablet] 12.5 mg PO BID #60 tab Continued sitagliptin 50 mg-metformin ER 1,000 mg tablet,extended release 24h mp 1 tab PO DAILY Discontinued atorvastatin 40 mg tablet 40 mg PO DAILY tab No Action ticagrelor 90 mg tablet 90 mg PO BID #60 tab lisinopril 10 mg tablet 10 mg PO DAILY #30 tab <Lalit Manley - 03/15/19 08:28> - Problem Reconciliation Problems Reviewed?: Yes <Lalit Manley - 03/15/19 08:28> Yes <Savanna Peralta - 03/03/19 13:35> - Additional Information Additional Information: Patient seen and examined. Concur with plan for discharge as outlined above. <Lalit Manley - 03/15/19 08:28>
== END 2019-03-02 10:23 | disposition home or self-care (01) | DRG 247 ==
LOC: ER 16:27 → CATHLAB 16:49 → 2ND 17:49
PROVIDERS: ADMIT Family Medicine; ATTEND Internal Medicine Cardiovascular Disease
CPT/HCPCS: 36415; 71010; 71045; 80048; 82962; 84484; 85025; 85347; 92928; 93005; 93306; 93458; 96365; 96375; 99152; 99284; C1725; C1760; C1769; C1876; C1894; C9600; J1644; J2405; Q9967

== ENCOUNTER → 2019-03-26 15:13 | Outpatient (CLI) | payer BC, MEDICARE, SELFPAY ==
[2019-03-26 17:07] LABS: Hemoglobin A1C 6.5 % (0.0-7.0)
[2019-03-26 17:27] LABS: Alanine Aminotransferase 27 U/L (9-52); Albumin Level 3.8 g/dL (3.4-5.0); Albumin/Globulin Ratio 1.4 (1.1-1.8); Alkaline Phosphatase 55 U/L (46-116); Anion Gap 14.5 mEq/L (5-15); Aspartate Amino Transferase 21 U/L (15-37); Bilirubin,Total 0.4 mg/dL (0.2-1.0); Blood Urea Nitrogen 21 mg/dL (7-18); Calcium 9.3 mg/dL (8.5-10.1); Carbon Dioxide 27 mmol/L (21.0-32.0); Chloride 104 mmol/L (98-107); Chol/HDL Ratio 4.2 (1-3.5); Cholesterol 134 mg/dL (140-200); Creatinine,Serum 0.84 mg/dL (0.55-1.02); Estimated Glomerular Filt Rate 66 ml/min (>60); GFR (African American) 80 ML/MIN (>60); Globulin 2.8 gm/dl (1.3-3.2); Glucose 90 mg/dL (74-106); HDL Cholesterol 32 mg/dL (29-89); LDL Cholesterol 75 mg/dL (0-130); Potassium 4.5 mmoL/L (3.5-5.1); Sodium 141 mmol/L (137-145); Thyroid Stimulating Hormone 1.76 uIU/ml (0.358-3.740); Total Protein,Serum 6.6 g/dL (6.4-8.2); Triglycerides 135 mg/dL (30-200); VLDL Cholesterol 27 mg/dL (0-40)
== END ==
PROVIDERS: Visit Provider Internal Medicine Adolescent Medicine
DX: E11.9 Type 2 diabetes mellitus without complications (principal); Z79.84 Long term (current) use of oral hypoglycemic drugs; Z79.899 Other long term (current) drug therapy
CPT/HCPCS: 36415; 80053; 80061; 83036; 84443

== ENCOUNTER → 2019-09-09 14:16 | Outpatient (POV) | payer BC, MEDICARE, SELFPAY | PROVIDERS: PCP Internal Medicine Adolescent Medicine | DX: Z00.00 Encounter for general adult medical examination without abnormal findings (principal) ==

== ENCOUNTER → 2019-09-23 14:20 | Outpatient (POV) | payer BC, MEDICARE, SELFPAY | DX: Z00.00 Encounter for general adult medical examination without abnormal findings (principal) ==

== ENCOUNTER → 2019-12-17 07:17 | Outpatient (CLI) | payer MEDICARE, BC, SELFPAY ==
[2019-12-17 08:15] LABS: Basophils % 0.8 % (0.1-2.0); Eosinophils # 0.1 K/mm3 (0.0-0.4); Eosinophils % 2.3 % (0.1-12.0); Hematocrit 44.3 % (37.0-47.0); Hemoglobin 13.9 g/dL (12.2-16.2); Lymphocytes # 1.4 K/mm3 (0.7-4.5); Lymphocytes % 26.3 % (10-50); Mean Corpuscular HGB Conc 31.4 g/dL (31.8-35.4); Mean Corpuscular Hemoglobin 27.4 pg (27.0-31.2); Mean Corpuscular Volume 87.3 fl (81-99); Mean Platelet Volume 8.5 fl (7.4-10.4); Monocytes # 0.3 K/mm3 (0.1-1.0); Monocytes % 6.1 % (1.7-9.3); Neutrophils # 3.4 K/mm3 (1.8-7.8); Neutrophils % 64.5 % (37.0-80.0); Platelet Count 220 K/mm3 (142-424); Red Blood Count 5.08 M/mm3 (4.20-5.40); Red Cell Distribution Width 14.1 % (11.5-17.5); White Blood Count 5.3 K/mm3 (4.8-10.8)
[2019-12-17 08:29] LABS: Hemoglobin A1C 6.7 % (4.0-6.0)
[2019-12-17 10:44] LABS: Chloride 106 mmol/L (98-107)
[2019-12-17 10:45] LABS: Sodium 140 mmol/L (136-145)
[2019-12-17 10:47] LABS: Bilirubin,Unconjugated 0.6 mg/dL (0.0-1.1); Blood Urea Nitrogen 21 mg/dl (7-17); Carbon Dioxide 26 mmol/L (22.0-30.0); Estimated Glomerular Filt Rate 70 ml/min (>60); GFR (African American) 85 ML/MIN (>60)
[2019-12-17 10:48] LABS: Alanine Aminotransferase 21 U/L (12-78); Albumin Level 4.3 g/dl (3.5-5.0); Alkaline Phosphatase 57 U/L (38-126); Aspartate Amino Transferase 24 U/L (14-36); Bilirubin,Direct 0.1 mg/dl (0.0-0.4); Bilirubin,Indirect 0.6 mg/dL (0.0-0.9); Bilirubin,Total 0.7 mg/dl (0.2-1.3); Calcium 9.7 mg/dl (8.4-10.2); Chol/HDL Ratio 5.2 (1-3.5); Cholesterol 181 mg/dl (140-200); Glucose 130 mg/dl (74-100); HDL Cholesterol 35 mg/dl (40-60); Total Protein,Serum 6.9 g/dl (6.3-8.2); Triglycerides 251 mg/dl (30-150); VLDL Cholesterol 50 mg/dL (0-40)
[2019-12-17 11:00] LABS: Direct LDL Cholesterol 99.69 mg/dL (100-129)
[2019-12-17 12:27] LABS: Thyroid Stimulating Hormone 2.84 uIU/mL (0.465-4.68)
[2019-12-17 13:44] LABS: Free T4 (Free Thyroxine) 0.74 ng/dl (0.78-2.19)
== END ==
PROVIDERS: Visit Provider Urology
DX: E78.2 Mixed hyperlipidemia (principal); I10 Essential (primary) hypertension; I25.118 Atherosclerotic heart disease of native coronary artery with other forms of angina pectoris; Z95.1 Presence of aortocoronary bypass graft; E11.9 Type 2 diabetes mellitus without complications; Z79.84 Long term (current) use of oral hypoglycemic drugs
CPT/HCPCS: 36415; 80048; 80061; 80076; 83036; 84439; 84443; 85025

== ENCOUNTER → 2020-08-12 14:13 | Outpatient (CLI) | payer BC, MEDICARE, SELFPAY ==
--- NOTE | 2020-08-12 14:14 | CA_ITS ---
APPROVED REPORT EXAM: Comprehensive 2D, Doppler, and color-flow Echocardiogram [employer] Teacher: Corinne Gaspar RT(R) Ht: 5 ft 7 in Wt: 167lbs BSA: 1.87 BP: 141/87 mmHg Indications: CAD, CP, HTN, DM, SOB, hyperlipidemia, old SD, stent, CABG 04/03 2D Dimensions LVOT 2.03 cm (M/F) 1.5-2.5 LVEF (Saldivar's) 66.70 % F: 54 - 74 LV Volume 82.00 mL F: 46 - 106 LV Volume Index 43.85 mL/m2 F: 29 - 61 LA Volume 22.40 mL LA Volume Index 11.97 mL/m2 (M/F) 16-34 M-Mode Dimensions LA Diam 3.62 cm (1.9-4.0) Ao Diam 2.48 cm (2.0-3.7) LV Diastology E Decel Time 190.00 (160-240 msec) E/A Ratio 1.2 MED E' 9.60 (< 7 cm/sec) E'/MED E' Ratio 10.07 (>14) LAT E' 12.80 (<10 cm/sec) E/LAT E' Ratio 7.55 (>14) Mitral Valve MV E Max Christopher. 97.00 (40-130 cm/s) MV A Velocity 84.00 (40-130 cm/s) E/A Ratio 1.16 MV Decel. Time 190.00 (160-240 ms) MV PHT 56.00 ms Left Ventricle Left atrium is mildly enlarged, left ventricle is normal size, mild concentric left ventricular hypertrophy, visually estimated ejection fraction 55% with no regional wall motion abnormality, grade 1 diastolic dysfunction seen without tissue Doppler evidence of raise left atrial pressure. Right Ventricle Right atrium and right ventricle are normal size and contractility. Aortic Valve Aortic valve is minimally thickened and fibrosed, there is no aortic stenosis or aortic insufficiency. Mitral Valve Mitral valve grossly normal, there is mild mitral regurgitation. Tricuspid Valve Tricuspid grossly normal, there is mild tricuspid regurgitation, tricuspid regurgitation jet velocity is inadequate for calculation of the right ventricular systolic pressure. Pulmonic Valve Pulmonic valve is poorly visualized, Great Vessels Aortic root is normal size. Pericardium No significant pericardial effusion noted. Conclusion 1. Mildly enlarged left atrium, normal left ventricular size, mild concentric left ventricular hypertrophy, visually estimated ejection fraction 55% with no regional wall motion abnormality, grade 1 diastolic dysfunction seen without tissue Doppler evidence of raise left atrial pressure. 2. Mild mitral and tricuspid regurgitation. 3. No significant pericardial effusion noted. Electronically signed by : Mitchell Trejo, 08/13/2020 09:09:39
--- NOTE | 2020-08-12 14:14 | CA_ITS ---
APPROVED REPORT Printed Circuit Photographer: Greta Uriostegui RVT Laterality: Bilateral Study Quality: Good Indications: CAD,TATYANA Risk Factors Hypertension: Hyperlipidemia Diabetes Doppler Spectral Velocity Analysis ECA (R) 68.40/11.80 cm/s ECA (L) 118.20/11.20 cm/s dICA (R) 68.40/20.30 cm/s dICA (L) 96.50/32.20 cm/s Scooter (R) 66.30/19.20 cm/s Scooter (L) 86.80/29.90 cm/s pICA (R) 65.20/17.10 cm/s pICA (L) 67.30/24.70 cm/s dCCA (R) 61.00/11.80 cm/s dCCA (L) 75.60/21.00 cm/s pCCA (R) 63.10/15.00 cm/s pCCA (L) 92.00/21.00 cm/s Vert (R) 28.50/5.40 cm/s Vert (L) 39.70/13.50 cm/s ICA/CCA 1.12 ICA/CCA 1.28 Findings Study suggests less than 20% stenosis of the right internal cartoid artery. Study suggests less than 20% stenosis of the left internal cartoid artery. Antegrade flow seen bilateral vertebral arteries. Conclusion Study suggests less than 20% stenosis of the right internal cartoid artery. Study suggests less than 20% stenosis of the left internal cartoid artery. Antegrade flow seen bilateral vertebral arteries. Electronically signed by : Anastacio Lora MD 08/12/2020 15:07:39
== END ==
PROVIDERS: PCP Internal Medicine Adolescent Medicine; Visit Provider Physician Assistant
DX: R06.00 Dyspnea, unspecified (principal); I25.10 Atherosclerotic heart disease of native coronary artery without angina pectoris; E78.5 Hyperlipidemia, unspecified; I10 Essential (primary) hypertension; Z95.1 Presence of aortocoronary bypass graft; I77.1 Stricture of artery
CPT/HCPCS: 93306; 93880

== ENCOUNTER 2020-10-14 20:59 | Emergency (ER) | payer BC, MEDICARE, SELFPAY ==
--- NOTE | 2020-10-14 21:09 | XR_ITS ---
PROCEDURE INFORMATION: Exam: XR Right Ankle Exam date and time: 10/14/2020 9:09 PM Age: 75 years old Clinical indication: Pain and injury or trauma; Fall; Sprain or strain and swelling (edema); Ankle; Right; Additional info: Twisted right ankle, ankle and foot pain, fall TECHNIQUE: Imaging protocol: XR Right ankle. Views: 3 or more views. COMPARISON: No relevant prior studies available. FINDINGS: Bones/joints: There is a nondisplaced fracture of the lateral malleolus. The ankle mortise appears intact on these nonstress views. Note is made of a small plantar calcaneal osteophyte. Soft tissues: There is soft tissue swelling surrounding the ankle joint. IMPRESSION: Nondisplaced fracture of the lateral malleolus.
--- NOTE | 2020-10-14 21:09 | XR_ITS ---
PROCEDURE INFORMATION: Exam: XR Right Foot Exam date and time: 10/14/2020 9:09 PM Age: 75 years old Clinical indication: Pain and injury or trauma; Fall; Sprain or strain and swelling (edema); Foot; Right; Additional info: Twisted right ankle, ankle and foot pain, fall TECHNIQUE: Imaging protocol: XR Right foot. Views: 3 or more views. COMPARISON: CR XR ANKLE RT MIN 3V 10/14/2020 9:03 PM FINDINGS: Bones/joints: There is no acute fracture or dislocation of the bones of the foot. Note is made of degenerative changes of the 1st metatarsophalangeal joint with mild hallux valgus deformity and bunion. Small plantar calcaneal osteophyte. Note is again made of the nondisplaced fracture of the lateral malleolus, better visualized on ankle radiographs. Soft tissues: There is mild soft tissue swelling of the ankle. IMPRESSION: 1. No acute fracture of the bones of the foot. 2. Note again made of nondisplaced fracture of the lateral malleolus.
[2020-10-14 21:10] VITALS: BP 128/74; PULSE 79; RESP 14; TEMP 36.8; O2SAT 97; BMI 25.5
--- NOTE | 2020-10-14 21:37 | HMH.EDUTC ---
[facility] – [place] Disposition Clinical Impression: Fracture of distal fibula Qualifiers: Encounter type: initial encounter Fracture type: closed Fracture morphology: unspecified fracture morphology Laterality: right Qualified Code(s): S82.831A - Other fracture of upper and lower end of right fibula, initial encounter for closed fracture Disposition: Home, Self-Care Condition on Discharge: Good Instructions: DI for Malleolar Fracture Additional Instructions: Rest the extremity, apply ice for 15 minutes as tolerated three or four times per day, Wear the river wrap for compression, Elevate the extremity as tolerated while you are resting. Take ibuprofen for pain. I sent in a prescription to your pharmacy. Follow up with Dr. Husain (orthopedics). I put in a referral and called him on the phone. Please call on Saturday to set up the appointment. He said he would see you on next Saturday, but please call and set up the time. Follow up with your regular doctor. GO TO THE ER FOR ANY WORSENING SYMPTOMS Don't bear weight on your ankle. Call Orthopedics on Saturday and please follow their directions from then on. Prescriptions: Ibuprofen [Ibuprofen 600mg Tablet] 600 mg PO Q6HP PRN #30 tab PRN Reason: Mild Pain Transmission Status: Pending to [facility] Referrals: Julian Wong MD [Primary Care Provider] - Nathan Husain JR, MD [Physician] - Forms: Work/School Release Time of Disposition: 21:56 Medical Decision Making - Medical Records Medical records reviewed: No: I reviewed the patient's medical records. - Donell Inquiry Pt receiving controlled substance: No Vital Signs: 10/14/20 21:10 Temperature 98.2 F Temperature Source Oral Pulse Rate [Right Radial] 79 Respiratory Rate 14 Blood Pressure [Right Arm] 128/74 Blood Pressure Mean [Right Arm] 92 Blood Pressure Source [Right Arm] Automatic Cuff Blood Pressure Position [Right Arm] Sitting 02 Sat by Pulse Oximetry 97 Oxygen Delivery Method Room Air [facility] [place] HPI - General Stated complaint: Ao 10/14@2030 injured R Ankle Time Seen by Provider: 10/14/20 21:10 Mode of Arrival: Wheelchair Source of Information: Patient Limitations: No Limitations Description of Symptoms (Recalled from Triage Doc. by RN): Pt c/o rt ankle pain after stepping in a hole and twisting it HEENT Symptoms (Recalled from RN notes): No Resp Symptoms (Recalled from RN notes): No Skin Symptoms (Recalled from RN notes): No MS Symptoms (Recalled from RN notes): Yes (Rt ankle injury) Functional Status (Recalled from RN notes): n/a - History of Present Illness Provider Complaint: She states that earlier today she accidentily stepped in a hole with her right foot. This caused her to twist her right foot and ankle. Since then she has had swelling and pain of her right ankle and foot. She has tried to walk on it at home but it hurts too bad to bear weight on it. - Related Data Home Medications Medication Instructions Recorded Confirmed Aspirin [Aspirin 81mg EC Tab] 81 mg PO DAILY 04/17/19 08/08/20 ticagrelor 90 mg tablet 90 mg PO BID 08/08/20 08/08/20 Previous Rx's Medication Instructions Recorded atorvastatin 80 mg tablet 80 mg PO HS #30 tab 03/31/20 metoprolol succinate 50 mg 50 mg PO DAILY #30 tab 03/31/20 tablet,extended release 24 hr sitagliptin 50 mg-metformin ER 1 tab PO DAILY #30 tab 08/16/20 1,000 mg tablet,extended release 24h mp Ibuprofen [Ibuprofen 600mg 600 mg PO Q6HP PRN #30 tab 10/14/20 Tablet] Allergies Allergy/AdvReac Type Severity Reaction Status Date / Time No Known Allergies Allergy Verified 08/08/20 09:48 - Worker's Comp Is this a Worker's Comp case?: No [facility] History - Hepatitis A Screen Drug use history?: No High risk sexual behaviors?: No History of sexually transmitted infection?: No Currently employed?: No Childcare worker?: No Do you have indoor plumbing?: Yes Do you have electricity?: Y
[2020-10-14 22:09] VITALS: BP 128/74; PULSE 79; RESP 14; TEMP 36.8; O2SAT 97
== END 2020-10-14 22:13 | disposition home or self-care (01) ==
PROVIDERS: Emergency Provider Nurse Practitioner Family; PCP Internal Medicine Adolescent Medicine
DX: S82.64XA Nondisplaced fracture of lateral malleolus of right fibula, initial encounter for closed fracture (principal); W17.2XXA Fall into hole, initial encounter; Y92.89 Other specified places as the place of occurrence of the external cause; I25.10 Atherosclerotic heart disease of native coronary artery without angina pectoris; E11.9 Type 2 diabetes mellitus without complications; I10 Essential (primary) hypertension; E78.5 Hyperlipidemia, unspecified
CPT/HCPCS: 73610; 73630; 99202; G0463

== ENCOUNTER 2020-10-21 15:25 | Outpatient (RCR) | payer BC, MEDICARE, SELFPAY | END 2020-10-21 16:10 | disposition home or self-care (01) | LOC: PT 15:25 | PROVIDERS: Visit Provider Orthopaedic Surgery | DX: S82.401A Unspecified fracture of shaft of right fibula, initial encounter for closed fracture (principal) | CPT/HCPCS: 97760 ==

== ENCOUNTER → 2020-11-04 09:22 | Outpatient (CLI) | payer BC, MEDICARE, SELFPAY ==
--- NOTE | 2020-11-04 09:27 | XR_ITS ---
PROCEDURE: XR ANKLE RT MIN 3V CLINICAL INDICATION: RT fibula fx COMPARISON: CR XR ANKLE RT MIN 3V from 10/14/2020 FINDINGS: Nondisplaced distal fibular fracture transverse in nature once again noted. There is some sclerosis along the medial aspect of the fracture margin suggesting healing. The joint spaces are well-preserved. No significant degenerative/arthritic changes. No erosive changes evident. Other findings:The ankle mortise does not appear widened. IMPRESSION: Healing fibular fracture nondisplaced Dictated by: Anastacio Lora MD 11/04/2020 10:10 Anastacio Lora MD in [place] 11/04/2020 10:10
== END ==
PROVIDERS: PCP Internal Medicine Adolescent Medicine; Visit Provider Orthopaedic Surgery
DX: S82.401A Unspecified fracture of shaft of right fibula, initial encounter for closed fracture (principal)
CPT/HCPCS: 73610

== ENCOUNTER → 2020-11-29 08:04 | Outpatient (CLI) | payer BC, MEDICARE, SELFPAY ==
[2020-11-29 08:19] LABS: Basophils # 0.1 K/mm3 (0-0.2); Basophils % 1.3 % (0.1-2.0); Eosinophils # 0.2 K/mm3 (0.0-0.4); Eosinophils % 3.1 % (0.1-12.0); Hematocrit 44.7 % (37.0-47.0); Hemoglobin 14.7 g/dL (12.2-16.2); Lymphocytes # 1.6 K/mm3 (0.7-4.5); Lymphocytes % 28.9 % (10-50); Mean Corpuscular Hemoglobin 29.3 pg (27.0-31.2); Mean Platelet Volume 8.8 fl (7.4-10.4); Monocytes # 0.4 K/mm3 (0.1-1.0); Monocytes % 6.7 % (1.7-9.3); Neutrophils # 3.4 K/mm3 (1.8-7.8); Platelet Count 225 K/mm3 (142-424); Red Blood Count 5.02 M/mm3 (4.20-5.40); Red Cell Distribution Width 13.6 % (11.5-17.5); White Blood Count 5.6 K/mm3 (4.8-10.8)
[2020-11-29 09:12] LABS: Chloride 104 mmol/L (98-107); Sodium 140 mmol/L (136-145)
[2020-11-29 09:13] LABS: Potassium 5.1 mmoL/L (3.5-5.1)
[2020-11-29 09:15] LABS: Alanine Aminotransferase 21 U/L (12-78); Alkaline Phosphatase 80 U/L (38-126); Anion Gap 15.1 mEq/L (5-15); Aspartate Amino Transferase 25 U/L (14-36); Bilirubin,Total 0.6 mg/dl (0.2-1.3); Blood Urea Nitrogen 20 mg/dl (7-17); Carbon Dioxide 26 mmol/L (22.0-30.0); Cholesterol 177 mg/dl (140-200); Estimated Glomerular Filt Rate 82 ml/min (>60); GFR (African American) 99 ML/MIN (>60); Glucose 188 mg/dl (74-100); Triglycerides 304 mg/dl (30-150); VLDL Cholesterol 61 mg/dL (0-40)
[2020-11-29 09:16] LABS: Albumin/Globulin Ratio 1.5 (1.1-1.8); Calcium 9.1 mg/dl (8.4-10.2); Chol/HDL Ratio 5.7 (1-3.5); Globulin 2.7 g/dL (1.3-3.2); HDL Cholesterol 31 mg/dl (40-60); Total Protein,Serum 6.7 g/dl (6.3-8.2)
[2020-11-29 09:27] LABS: Direct LDL Cholesterol 89.61 mg/dL (100-129)
== END ==
PROVIDERS: Visit Provider Internal Medicine Adolescent Medicine
DX: I25.10 Atherosclerotic heart disease of native coronary artery without angina pectoris (principal); E11.9 Type 2 diabetes mellitus without complications; Z79.84 Long term (current) use of oral hypoglycemic drugs
CPT/HCPCS: 36415; 80053; 80061; 83036; 85025

== ENCOUNTER → 2021-10-17 15:03 | Outpatient (POV) | payer BC, MEDICARE, SELFPAY | PROVIDERS: Visit Provider Dermatology | DX: Z00.00 Encounter for general adult medical examination without abnormal findings (principal) ==

== ENCOUNTER 2023-02-20 13:25 | Outpatient (CLI) | payer BC, MEDICARE, SELFPAY ==
[2023-02-20 13:49] LABS: Basophils # 0.1 K/mm3 (0-0.2); Basophils % 1.2 % (0.1-2.0); Eosinophils # 0.2 K/mm3 (0.0-0.4); Eosinophils % 2.4 % (0.1-12.0); Hematocrit 47.3 % (37.0-47.0); Hemoglobin 16.1 g/dL (12.2-16.2); Lymphocytes # 1.6 K/mm3 (0.7-4.5); Mean Corpuscular Hemoglobin 29.4 pg (27.0-31.2); Mean Corpuscular Volume 86.7 fl (81-99); Mean Platelet Volume 9.1 fl (7.4-10.4); Monocytes # 0.4 K/mm3 (0.1-1.0); Monocytes % 5.4 % (1.7-9.3); Neutrophils # 4.4 K/mm3 (1.8-7.8); Platelet Count 226 K/mm3 (142-424); Red Blood Count 5.46 M/mm3 (4.20-5.40); Red Cell Distribution Width 14.1 % (11.5-17.5); White Blood Count 6.5 K/mm3 (4.8-10.8)
[2023-02-20 14:27] LABS: Hemoglobin A1C 7.1 % (4.0-6.0)
[2023-02-20 14:59] LABS: Chloride 101 mmol/L (98-107); Sodium 137 mmol/L (136-145)
[2023-02-20 15:00] LABS: Potassium 4.5 mmoL/L (3.5-5.1)
[2023-02-20 15:02] LABS: Blood Urea Nitrogen 24 mg/dl (7-17); Estimated Glomerular Filt Rate 61 ml/min (>60); GFR (African American) 73 ML/MIN (>60)
[2023-02-20 15:03] LABS: Anion Gap 14.5 mEq/L (5-15); Calcium 9.5 mg/dl (8.4-10.2); Carbon Dioxide 26 mmol/L (22.0-30.0); Glucose 199 mg/dl (74-100)
== END 2023-02-20 23:59 ==
PROVIDERS: PCP Internal Medicine Adolescent Medicine; Visit Provider Orthopaedic Surgery
DX: Z01.818 Encounter for other preprocedural examination (principal); R06.02 Shortness of breath; R73.09 Other abnormal glucose
CPT/HCPCS: 36415; 80048; 83036; 85025

== ENCOUNTER 2023-02-22 11:14 | Outpatient (CLI) | payer BC, MEDICARE, SELFPAY ==
--- NOTE | 2023-02-22 11:14 | NM_ITS ---
APPROVED REPORT Exam: Nuclear Stress Test Indication: pre-op Patient Location: Outpatient Stress Tech: Jess Guevara [place] Tech:MARCIA Piña RT(R)(N) Ht: 5 ft 7 in Wt: 158 lbs Bra Size: 36b HR: 69 bpm BP: 131/73 mmHg BSA: 1.83 m2 TID: 1.35 BMI: 24.7 History: pre-op Procedure: Patient received 0.4 mg of intravenous Lexiscan, resting heart rate 69 bpm, resting blood pressure 131/73 mmHg, with Lexiscan maximum heart rate achieved was 98 bpm which is 85 % of the maximum predicted heart rate and blood pressure was 163/80 mmHg. With Lexiscan, patient denied any complaint of chest pain. Cardiac Stress and Resting SPECT Images: Cardiac Stress and Resting SPECT images were obtained using technetium 99m Myoview 32.2 mCi stress and 10.60 mCi at rest. Resting and stress imaging in supine and prone positions demonstrate no definite evidence of fixed or reversible perfusion defects. There is marked increase in transient ischemic dilatation ratio (TID 1.35), suggestive of possible multivessel disease or balanced ischemia. Gated imaging demonstrates normal global and regional LV systolic function. LVEF is calculated at 70%. Conclusion: No definite evidence of fixed or reversible perfusion defects. There is marked increase in transient ischemic dilatation ratio (TID 1.35), suggestive of possible multivessel disease or balanced ischemia. Gated imaging demonstrates normal global and regional LV systolic function. LVEF is calculated at 70%. Electronically signed by : Aminah Kennedy MD 02/25/2023 01:56:01
--- NOTE | 2023-02-22 12:57 | CA_ITS ---
APPROVED REPORT EXAM: Comprehensive 2D, Doppler, and color-flow Echocardiogram Final Dressing Cutter: KENTON Vu, RVS Ht: 5 ft 6 in Wt: 161lbs BSA: 1.82 BP: 118/76 mmHg Indications: CAD S/P CABG, PRE-OP KNEE, DM, SOB, HTN, CP 2D Dimensions IVSd 0.83 cm LVEF (Visual) 60.00 % PWd 0.66 cm LA Volume 36.50 mL LVDd 4.50 cm LA Volume Index 19.50 mL/m2 (M/F) 16-34 LVDs 3.07 cm Left Atrium 3.07 cm M-Mode Dimensions RVDd 2.72 cm (0.9-2.6) LA Diam 3.58 cm (1.9-4.0) LVDd 4.54 cm (3.5-5.7) LVDs 3.33 cm (3.5-5.7) IVSd 0.75 cm (0.6-1.1) PWd 0.82 cm (0.6-1.1) EF (Teich) 52.20% EPSs 0.75 cm FS 26.70% EDV (Teich) 94.40 mL TAPSE 1.33 (<1.7) ESV (Teich) 45.10 mL LV Diastology E Decel Time 187 (160-240 msec) E/A Ratio 1.25 MED A' 11.10 cm/s LAT A' 8.10 cm/s Aortic Valve TONG Index 1.13 cm2/m2 AoV Peak Christopher. 121.0 (50-130 cm/s) AO Peak GR. 5.90 mmHg AO Mean GR. 2.90 (<5 mmHg) AO VTI 26.9 (18-25 cm) TONG (VTI) 2.12 (2.5-4.5 cm2) Mitral Valve MV A Velocity 69.0 (40-130 cm/s) E/A Ratio 1.25 Pulmonary Valve LA End VMAX 165.0 cm/s Tricuspid Valve TR P. Velocity 230.00 cm/s RAP Estimate 10.00 mmHg RVSP 31.20 mmHg Left Ventricle The left ventricle is normal size. The left ventricular systolic function is normal. The left ventricular ejection fraction is within the normal range. Proximal septal thickening. There is normal LV segmental wall motion. Diastolic function is indeterminate. LVEF is 60%. Right Ventricle The right ventricle is normal size. The right ventricular systolic function is normal. Atria The left atrium size is normal. The right atrium size is normal. There is no Doppler evidence of interatrial shunt. Aortic Valve The aortic valve is mildly thickened. There is no aortic valvular stenosis. No aortic regurgitation is present. Mitral Valve The mitral valve is normal in structure. No evidence of mitral valve stenosis. There is no mitral valve regurgitation noted. Tricuspid Valve The tricuspid valve leaflets are thin and pliable. Trace tricuspid regurgitation. RVSP is normal. Pulmonic Valve The pulmonary valve is normal in structure. Mild pulmonic regurgitation. Great Vessels The aortic root is normal in size. The ascending aorta is not well visualized. IVC is normal in size and collapses >50% with inspiration. Pericardium There is no pericardial effusion. Other Information Study Quality: Fair Conclusion Normal biventricular systolic function. Mild LA. Electronically signed by : Aminah Kennedy MD 02/23/2023 16:02:33
--- NOTE | 2023-02-22 13:09 | CA_ITS ---
APPROVED REPORT Exam: Pharmacologic Technologist: Jess Ramos, Ht: 5 ft 6 in Wt: 161 lbs BSA: 1.82 m2 HR: 66 bpm BP: 131/73 mmHg Rhythm: NSR Indications: PreOp, CAD Medical History Medications: Lisinopril,,,,, Aspirin,,,,, Metoprolol,,,,, Atorvastatin,,,,, Janumet,,,,, EMpagliflozin,,,,, Stress Test Details Test: LEXISCAN Reason for pharmacologic stress test: physical limitation. HR Resting HR: 69 bpm Max Heart Rate (APMHR): 143 bpm Max HR Achieved: 98 bpm Target HR (85% APMHR): 122 bpm % of APMHR: 69 Recovery HR: 82 bpm BP Resting BP: 131.0/73.0 mmHg Max BP: 163.0/80.0 mmHg Recovery BP: 141.0/76.0 mmHg ECG Resting ECG: Sinus arrhythmia, diffuse T wave changes Stress ECG: No significant ST changes Arrhythmia: None Clinical Exercise duration: 04:00 min Highest Stage Achieved: Stress ECG Conclusion Symptoms: Mild SOA & stomach discomfort. Arrhythmias/Ectopy: Sinus arrhythmia ST-T Changes: No significant ST changes Conclusion: Nondiagnostic Lexiscan stress test due to baseline abnormalities. Myoview images reported separately. Test Summary REST . . . . . . . Resting REST 05:34 . . 69 . 131/ 73 . . Stage 1 01:00 . . 94 . . . . Stage 2 01:00 . . 90 . 163/ 80 . . Stage 3 01:00 . . 86 . 163/ 74 . . Stage 4 01:00 . . 85 . 161/ 72 . Stop exercise at 04:00 RECOVERY 01:00 . . 86 . 137/ 72 . . RECOVERY 02:00 . . 85 . 137/ 72 . . RECOVERY 03:00 . . 82 . 141/ 76 . . RECOVERY 03:15 . . 81 . 141/ 76 . . Electronically signed by : Aminah Kennedy MD 02/25/2023 01:54:25
[2023-02-22] MEDS: ISOTOPE MYOVIEW (PER STUDY) 1 DOSE IV (14:09)
[2023-02-22] MEDS: REGADENOSON 0.4MG/5ML SYRINGE 0.400000000000000022 MG IV (14:09)
[2023-02-22] MEDS: SODIUM CHLORIDE 0.9% 10ML SYR (RAD ONLY) 10 ML IV ×2 (14:09→14:10)
== END 2023-02-22 23:59 ==
LOC: RAD 11:14
PROVIDERS: PCP Internal Medicine Adolescent Medicine; Visit Provider Nurse Practitioner
DX: Z01.810 Encounter for preprocedural cardiovascular examination (principal); I25.10 Atherosclerotic heart disease of native coronary artery without angina pectoris; I10 Essential (primary) hypertension; R94.31 Abnormal electrocardiogram [ECG] [EKG]; E11.9 Type 2 diabetes mellitus without complications; E78.5 Hyperlipidemia, unspecified; Z95.1 Presence of aortocoronary bypass graft; Z95.5 Presence of coronary angioplasty implant and graft; Z79.84 Long term (current) use of oral hypoglycemic drugs
CPT/HCPCS: 78452; 93017; 93018; 93306; A9502; J2785